=== PATIENT | male | born 2000 | race Caucasian/White ===

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

== ENCOUNTER 2018-08-10 09:34 | Emergency (ER) | payer OTHER ==
[~2018-08-10] VITALS: Ht 177.8 cm; Wt 74.8 kg
[~2018-08-10 09:34] MED LIST: METHYLPHENIDATE54 MG PO
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
[2018-08-10] MEDS ORDERED: CHLORDIAZEPOXID25 MG PO (11:22)
[2018-08-10] MEDS ORDERED: ONDANSETRON ODT8 MG PO (11:22)
== END 2018-08-10 11:39 | disposition home or self-care (01) ==
LOC: ED 09:34
DX: F10.239 Alcohol dependence with withdrawal, unspecified (principal); R56.9 Unspecified convulsions; F17.200 Nicotine dependence, unspecified, uncomplicated; Y90.0 Blood alcohol level of less than 20 mg/100 ml
CPT/HCPCS: 80053; 85025; 96361; 96374; 99285-25; G0480; J2405; J7030

== ENCOUNTER 2018-08-13 13:49 | Emergency (ER) | payer OTHER ==
[~2018-08-13] VITALS: Ht 177.8 cm; Wt 68.5 kg
[~2018-08-13 13:49] MED LIST changes: +CHLORDIAZEPOXID25 MG PO; +ONDANSETRON ODT8 MG PO
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
[2018-08-13] MEDS ORDERED: KEPPRA500 MG PO (16:26)
== END 2018-08-13 16:35 | disposition home or self-care (01) ==
LOC: ED 13:49
DX: G40.909 Epilepsy, unspecified, not intractable, without status epilepticus (principal); F17.200 Nicotine dependence, unspecified, uncomplicated
CPT/HCPCS: 70450; 80053; 85025; 96365; 99285-25; G0480; J1953; J7060

== ENCOUNTER 2018-09-07 23:08 | Emergency (ER) | payer OTHER ==
[~2018-09-07] VITALS: Ht 177.8 cm; Wt 68.0 kg
[~2018-09-07 23:08] MED LIST changes: +KEPPRA500 MG PO
--- OUTSIDE RECORDS SUMMARY | 2018-09-07 23:12 | XMS ---
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 Care History Medical/Surgical 08/11/2018 [facility] - PATIENT TO ESTABLISH CARE WITH DR GASTON ON 09/13/18. E.D. VISIT COUNT (12 MO.) 1 [facility] 3 [facility] TOTAL 4 NOTE: Visits indicate total known visits. ED/UCC VISIT TRACKING (12 MO.) 09/07/2018 23:09 [facility] [place] TYPE: Emergency COMPLAINT: - MED CLEARANCE 08/13/2018 13:49 [facility] [place] [facility] [place] TYPE: Emergency COMPLAINT: - SEIZURE DIAGNOSES: - Unspecified convulsions - Epilepsy, unspecified, not intractable, without status epilepticus - Nicotine dependence, unspecified, uncomplicated 08/10/2018 09:35 [facility] [place] [facility] [place] TYPE: Emergency COMPLAINT: - SEIZURE DIAGNOSES: - Blood alcohol level of less than 20 mg/100 ml - Nicotine dependence, unspecified, uncomplicated - Alcohol dependence with withdrawal, unspecified - Unspecified convulsions 07/28/2018 00:01 [facility] [place] TYPE: Emergency DIAGNOSES: - Alcohol use, unspecified with intoxication, uncomplicated - INTOXICATED INPATIENT VISIT TRACKING (12 MO.) No inpatient visits to display in this time frame [id number]
== END 2018-09-08 01:34 | disposition home or self-care (01) ==
LOC: ED 23:08
DX: R45.851 Suicidal ideations (principal); F17.200 Nicotine dependence, unspecified, uncomplicated; Z79.899 Other long term (current) drug therapy
CPT/HCPCS: 99284